=== PATIENT | female | born 1990 | race Hispanic/Latino ===

== ENCOUNTER 2023-01-31 09:39 | Outpatient (CLI) | payer OTHER ==
[2023-01-31] MEDS ORDERED: Iopamidol 300 61% 100 ML VIAL FS ONE (12:09)
== END 2023-01-31 09:40 | disposition home or self-care (01) ==
LOC: CSHCT 09:39
PROVIDERS: ATTEND Family Medicine
DX: C53.9 Malignant neoplasm of cervix uteri, unspecified (principal)
CPT/HCPCS: 72194; Q9967